=== PATIENT | female | born 1965 | race Caucasian/White ===

== ENCOUNTER → 2017-12-06 16:39 | Outpatient (CLI) | payer OTHER, SELFPAY ==
[2017-12-08 15:02] LABS: HPV Reflexed? NOT INDICATED
== END ==
PROVIDERS: Visit Provider Obstetrics & Gynecology
DX: Z12.4 Encounter for screening for malignant neoplasm of cervix (principal)
CPT/HCPCS: 88175; G0145

== ENCOUNTER → 2017-12-28 06:57 | Outpatient (CLI) | payer OTHER, SELFPAY ==
--- NOTE | 2017-12-28 07:00 | BI_ITS ---
MAMMOGRAPHY - BILATERAL SCREENING REASON FOR EXAM: Female, 52 years old. Routine annual screening examination. PERTINENT HISTORY: Mother with breast cancer. TECHNIQUE: Digital bilateral breast jailyn (3D mammographic acquisition) in the CC and MLO projections. 2-D mediolateral oblique (MLO) and craniocaudad (CC) views of both breasts were obtained. CAD: Full Field Digital Mammography with Computer Added Detection was performed. COMPARISON: Comparison is made with prior arthritic examination dated November 09, 2016. FINDINGS: Breast Composition: There are scattered areas of fibroglandular density. There are no dominant masses or suspicious calcifications. No other significant abnormalities are identified. There has been no significant change since the prior study. BI/SCREENING MAMM (CAD), BILAT IMPRESSION: Stable bilateral screening mammogram. Yearly follow-up mammogram recommended. (A) ASSESSMENT CATEGORY: BIRADS Category 1: Negative. A letter regarding these results will be sent to the patient by the facility within 30 days. Approximately 10% of breast cancers are not detected by mammography. A normal mammogram should not delay biopsy of a clinically suspicious abnormality. [id number] Electronically Signed: Murray Cleveland MD at 9:01 EDT Tel [phone], Service support ,
== END ==
PROVIDERS: Family Provider Family Medicine; PCP Family Medicine; Visit Provider Obstetrics & Gynecology
DX: Z12.31 Encounter for screening mammogram for malignant neoplasm of breast (principal)
CPT/HCPCS: 77063; 77067

== ENCOUNTER → 2018-01-26 07:57 | Outpatient (CLI) | payer OTHER, SELFPAY ==
[2018-01-26 09:00] LABS: Absolute Neutrophil Count 2.4 X10^3/uL (2.0-7.7); Basophil# 0.03 X10^3/uL; Basophil% 0.6 % (0-1); Eosinophil# 0.17 X10^3/uL; Eosinophils% 3.5 % (0-5); Hematocrit 42.4 % (37-47); Hemoglobin 13.5 g/dl (12.0-15.0); Lymphocyte % 40.8 % (19-41); Mean Corp Hgb Conc 31.8 g/gl (32-36); Mean Corpuscular Volume 84.8 fL (81-99); Mean Platelet Vol. 10.1 fl (6.2-12.0); Monocyte# 0.32 X10^3/uL; Monocyte% 6.5 % (0-10); Neutrophil # 2.38 X10^3/uL (2.7-7.7); Neutrophil % 48.6 % (47-70); Platelet Count 364 K/mm3 (150-450); RBC Distribution Width CV 17.2 % (11.6-14.6); RBC Distribution Width SD 53.6 fl (35.1-43.9); White Blood Count 4.9 K/mm3 (4.4-11.0)
[2018-01-26 09:02] LABS: POSITIVE COUNT NO; POSITIVE DIFFERENTIAL NO; POSITIVE MORPHOLOGY NO
[2018-01-26 09:32] LABS: AST(SGOT) 16 U/L (15-37); Alanine Aminotransfer ALT/SGPT 24 U/L (13-56); Albumin, Serum 3.6 g/dL (3.2-5.0); Alkaline Phosphatase 84 U/L (45-117); Anion Gap 8 (5-15); BUN 17 mg/dL (7-18); BUN/Creat Ratio 19.5 RATIO (10-20); Calcium,Total 8.7 mg/dL (8.5-10.1); Chloride 107 mmol/L (98-107); Cholesterol 228 mg/dL (200); Creatinine, Serum 0.87 mg/dL (0.55-1.02); EST Glomerular Filtration Rate 72 mL/min (>60); Est Glom Filt Rate - Afr Amer 87 mL/min (>60); Globulin 3.6 g/dL (2.2-4.2); Glucose 88 mg/dL (74-106); High Density Lipoprotein 78 mg/dL; Potassium 3.9 mmol/L (3.5-5.1); Protein, Total 7.2 g/dL (6.4-8.2); Sodium Level 142 mmol/L (136-145); Triglycerides 85 mg/dL; Very Low Density Lipoprotein 17 mg/dL (5-40)
== END ==
PROVIDERS: Family Provider Family Medicine; PCP Family Medicine; Referring Provider Family Medicine; Visit Provider Family Medicine
DX: Z00.00 Encounter for general adult medical examination without abnormal findings (principal)
CPT/HCPCS: 36415; 80053; 80061; 85025

== ENCOUNTER → 2018-12-29 06:58 | Outpatient (CLI) | payer OTHER, SELFPAY ==
[2018-08-10 16:40] VITALS: BMI 21.0
--- NOTE | 2018-12-29 07:01 | BI_ITS ---
MAMMOGRAPHY - BILATERAL SCREENING REASON FOR EXAM: Female, 53 years old. Routine annual screening examination. PERTINENT HISTORY: Mother with breast cancer. TECHNIQUE: Digital bilateral breast fady (3D mammographic acquisition) in the CC and MLO projections. 2-D mediolateral oblique (MLO) and craniocaudad (CC) views of both breasts were obtained. CAD: Full Field Digital Mammography with Computer Added Detection was performed. COMPARISON: Comparison is made with prior study dated December 28, 2017. FINDINGS: Breast Composition: There are scattered areas of fibroglandular density. There are no dominant masses or suspicious calcifications. No other significant abnormalities are identified. There has been no significant change since the prior study. BI/SCREEN MAMM (CAD) W/FADY BILAT IMPRESSION: Stable bilateral screening mammogram. Yearly follow-up mammogram recommended. (A) ASSESSMENT CATEGORY: BIRADS Category 1: Negative. A letter regarding these results will be sent to the patient by the facility within 30 days. Approximately 10% of breast cancers are not detected by mammography. A normal mammogram should not delay biopsy of a clinically suspicious abnormality. [id number] Electronically Signed: Murray Cleveland, at 8:57 EDT , Service support ,
== END ==
PROVIDERS: Family Provider Family Medicine; PCP Family Medicine; Referring Provider Obstetrics & Gynecology; Visit Provider Obstetrics & Gynecology
DX: Z12.31 Encounter for screening mammogram for malignant neoplasm of breast (principal); Z80.3 Family history of malignant neoplasm of breast
CPT/HCPCS: 77063; 77067

== ENCOUNTER → 2019-02-10 10:00 | Outpatient (CLI) | payer OTHER, SELFPAY ==
[2019-02-07 13:15] VITALS: BMI 21.0
[2019-02-10 13:15] LABS: Anion Gap 8 (5-15); BUN 14 mg/dL (7-18); BUN/Creat Ratio 17.2 RATIO (10-20); Calcium,Total 9.2 mg/dL (8.5-10.1); Chloride 103 mmol/L (98-107); Creatinine, Serum 0.82 mg/dL (0.55-1.02); EST Glomerular Filtration Rate 77 mL/min (>60); Est Glom Filt Rate - Afr Amer 94 mL/min (>60); Glucose 66 mg/dL (74-106); Potassium 3.8 mmol/L (3.5-5.1); Sodium Level 140 mmol/L (136-145); Thyroid Stim Hormone (TSH) 2.56 uIU/mL (0.358-3.74)
== END ==
PROVIDERS: Family Provider Family Medicine; PCP Family Medicine; Visit Provider Family Medicine
DX: R63.4 Abnormal weight loss (principal); K58.9 Irritable bowel syndrome, unspecified
CPT/HCPCS: 36415; 80048; 84443

== ENCOUNTER 2019-05-27 11:23 | Emergency (ER) | payer OTHER, SELFPAY ==
[2019-02-07 13:15] VITALS: BMI 21.0
[2019-05-27 11:24] VITALS: BP 135/90; PULSE 85; RESP 16; TEMP 36.6; O2SAT 96; BMI 23.4
--- NOTE | 2019-05-27 12:38 | ED.DCSUM_ITS ---
History of Present Illness Informant: Patient, Family Occurred: Today Mechanism/Context: Negative for: Assault, Burn, Injury, Fall, Puncture Wound, Slip Onset: Today Context: Gradual Onset Timing: Continuous Quality of Pain: Aching Location: left knee Current Severity: Moderate Maximum Severity: Moderate Worsened by: walking Relieved by: nothing Associated Symptoms: Negative for: Parasthesia, Weakness, Loss of Funtion Tetanus Immunization: Unknown Prior similar symptoms: Yes Recent Illness/Hospitalization: No <Sergey Frances - Last Filed: 05/27/19 13:10> <FernandoBoo - Last Filed: 05/27/19 13:26> Chief Complaint: Lower Extremity Injury Past Medical History Prior records reviewed: Yes Past Medical History: - - Arthritis, IBS Surgical History: - - micro disectomy, knee arthroscopy left Smoking Status: Never smoker <Sergey Frances - Last Filed: 05/27/19 13:10> <FernandoBoo - Last Filed: 05/27/19 13:26> - Allergies and Home Meds Allergies/Adverse Reactions: Allergies No Known Allergies Allergy (Verified 05/27/19 11:26) Primary Care Physician: Pawan Orlando DO [Primary Care Provider] - Review of Systems All systems negative except as indicated General: Denies: Chills, Fever, Malaise Eyes: Denies: Visual changes - bilaterally, Blurred Vision - bilaterally, Diplopia ENT: Denies: Rhinorrhea, Sore throat Cardiovascular: Denies: Chest pain, Palpitations, Heart racing Respiratory: Denies: Dyspnea, Cough, Sputum Gastrointestinal: Denies: Abdominal pain, Nausea, Vomiting, Diarrhea Genitourinary: Denies: Dysuria, Hematuria, Frequency Musculoskeletal: Reports: Swelling, Extremity Pain. Denies: Neck pain, Back pain Skin: Denies: Rash, Abscess, Abrasions, Wounds Neurological: Denies: Weakness, Parasthesia Psych: Denies: Depression, Anxiety <Sergey Frances - Last Filed: 05/27/19 13:10> Musculoskeletal: Reports: Swelling, Extremity Pain Hematologic: Denies: Easy bruising, Easy bleeding <FernandoBoo - Last Filed: 05/27/19 13:26> Physical Exam Vital Signs/Narrative: Vital Signs Temp Pulse Resp BP Pulse Ox 05/27/19 11:24 97.8 F 85 16 135/90 H 96 Inital Vital Signs reviewed: Yes General: Well nourished, Well developed Head: Normocephalic, Atraumatic Eyes: Perrl, EOMI ENT: No Trauma, Moist Mucous Membranes Neck: Nontender, Full ROM Cardiovascular: Regular rate, Regular rhythm Respiratory: No distress, CTA bilaterally, Chest nontender Back: Nontender Skin: No rash Neurological: Alert, Oriented x3 Psychological: Normal affect <Sergey Frances - Last Filed: 05/27/19 13:10> Vital Signs/Narrative: Vital Signs Temp Pulse Resp BP Pulse Ox 05/27/19 11:24 97.8 F 85 16 135/90 H 96 <Boo King - Last Filed: 05/27/19 13:26> Diagnostic/Tx/Re-eval - Medical Decision Making Patient's knee was aspirated by the physician Dr. King with just blood return no evidence of infection we did obtain a laboratory work-up was unremarkable. Patient has been reassured she will rest ice and elevate and use her crutches and follow-up on Wednesday as scheduled with orthopedic surgeon or return to the emergency department for worsening symptoms which were discussed. <Sergey Frances - Last Filed: 05/27/19 13:10> - Medical Decision Making An independent history physical was performed. Patient concern for more than 1 reason. She is concerned because of pain in the left knee, swelling over the left kneecap that started since yesterday and bruising. She had an MRI performed yesterday at the orthopedic center. She does not know the results. She denies history of bruising easily. She denies hematuria. She denies black or maroon-colored stool. She denies bleeding of her gums when she brushes her teeth. She is not on an anticoagulant. She denies history of trauma. She denies being on her knees to clean. Vital signs are noted. She is afebrile. Conjunctive is pink. Heart is regular. Lungs are clear to auscultation. Examination of the left lower extremity reveals swelling over the left patella consistent with a prepatellar bursitis. There is no erythema, warmth or induration. There is no lymphangitis. The patella is not ballotable. There is no effusion. There is no lacks with varus valgus stress testing. Katherine's test and modified McMu rray's tests are negative. There is no pain palpation the popliteal fossa. She does have pain the patient over the quadricep tendon. There is bruising noted left knee and anterior left leg. There are no neurovascular findings. Bruising CBC was obtained to assess platelet count and coags were obtained. These were negative. Needle aspirate of the prepatellar bursa was undertaken. Blood was aspirated. Proximally 1 cc of blood was aspirated. This is consistent with a traumatic bursitis. <Boo King - Last Filed: 05/27/19 13:26> ED Disposition <Sergey Frances - Last Filed: 05/27/19 13:10> <Boo King - Last Filed: 05/27/19 13:26> - Plan for ED Patient: Disposition: Home or Assisted Living Diagnosis: Traumatic bursitis Instructions: Bursitis Referrals: Pawan Orlando DO [Primary Care Provider] -
[2019-05-27 13:06] LABS: Absolute Lymphocyte Count 1.53 X10^3/uL (0.83-4.51); Absolute Neutrophil Count 2.7 X10^3/uL (2.0-7.7); Basophil# 0.04 X10^3/uL; Basophil% 0.8 % (0-1); Eosinophil# 0.07 X10^3/uL; Eosinophils% 1.4 % (0-5); Hemoglobin 14.7 g/dL (12.0-15.0); Lymphocyte # 1.53 X10^3/ul (4.0); Lymphocyte % 30.9 % (19-41); Mean Corp Hgb Conc 32.7 g/dL (32-36); Mean Corpuscular Hgb 30.8 pg (27.0-32.0); Mean Corpuscular Volume 94.3 fL (81-99); Monocyte# 0.59 X10^3/uL; Monocyte% 11.9 % (0-10); NRBC Flagged by Analyzer 0 % (0-5); Neutrophil # 2.71 X10^3/uL (2.7-7.7); Neutrophil % 54.8 % (47-70); Platelet Count 308 K/mm3 (150-450); RBC Distribution Width CV 12.9 % (11.6-14.6); RBC Distribution Width SD 45.1 fl (35.1-43.9); Red Blood Count 4.77 M/mm3 (4.2-5.4)
[2019-05-27 13:19] LABS: International Normalized Ratio 1.1; Partial Thromboplast Time 26.2 Seconds (24.1-36.2); Prothrombin Time (Protime)PT. 13.8 SECONDS (11.7-14.9)
[2019-05-27 13:28] VITALS: BP 119/90; PULSE 68; RESP 17; O2SAT 97
== END 2019-05-27 13:29 | disposition home or self-care (01) ==
PROVIDERS: Emergency Provider Physician Assistant Medical; PCP Family Medicine
DX: M71.562 Other bursitis, not elsewhere classified, left knee (principal); M19.90 Unspecified osteoarthritis, unspecified site; K58.9 Irritable bowel syndrome, unspecified
CPT/HCPCS: 85025; 85610; 85730; 99283; A4216

== ENCOUNTER 2019-06-02 17:36 | Emergency (ER) | payer OTHER, SELFPAY ==
[2019-06-02 17:37] VITALS: BP 147/79; PULSE 92; RESP 15; TEMP 36.6; O2SAT 96; BMI 21.3
--- NOTE | 2019-06-02 18:36 | US_ITS ---
STUDY: VENOUS DOPPLER ULTRASOUND - LEFT LOWER EXTREMITY REASON FOR EXAM: Female, 53 years old. LEFT LEG PAIN AND BRUISING FROM THE KNEE DOWN COUPLE MONTHs TECHNIQUE: Ultrasound evaluation of the deep vein system to include dickey-scale imaging and compression was performed. Dickey-scale imaging and Doppler sonographic evaluation, including duplex spectral analysis and qualitative color flow sonography, was performed. COMPARISON: None. FINDINGS: Common Femoral Vein: Normal compression, spontaneity and augmentation. Normal color Doppler. Common Femoral Vein/Greater Saphenous Junction: Normal compression, spontaneity and augmentation. Normal color Doppler. Deep Femoral Vein: Normal compression, spontaneity and augmentation. Normal color Doppler. Femoral Proximal: Normal compression, spontaneity and augmentation. Normal color Doppler. Femoral Middle: Normal compression, spontaneity and augmentation. Normal color Doppler. Femoral Distal: Normal compression, spontaneity and augmentation. Normal color Doppler. Popliteal Vein: Normal compression, spontaneity and augmentation. Normal color Doppler. Posterior Tibial Vein: Normal compression, spontaneity and augmentation. Normal color Doppler. Peroneal Vein: Normal compression, spontaneity and augmentation. Normal color Doppler. US/Venous Duplex Imag/Limited/Uni IMPRESSION: Normal venous Doppler ultrasound of the lower extremity. Electronically Signed: Madi King MD at 19:32 EST , Service support ,
--- NOTE | 2019-06-02 19:14 | ED.VISSUMM ---
- ER Visit Summary Date of Service: 06/02/19 Chief Complaint: Bruising left leg History of Present Illness: The patient is a [address] Kasia Damian. She reports that she is had some prepatellar swelling since February. She saw Dr. Damian in the office 2 weeks ago and had an x-ray. She had an MRI 1 week ago. This did not show a cause of this. She was seen in the emergency department 6 days ago and was felt that this was a bursitis. She had blood work obtained and it was drained. Patient reports that 2 days later she began getting bruising to her left leg and is now become diffuse. She reports that she has a pain that is aching 7 out of 10 with touching it or moving it. She is pain-free at rest and with elevation. She denies any numbness or weakness. Patient denies any easy bruising or bleeding. Her gums do not bleed when she flosses. Physical Examination: Vitals: Stable. Afebrile. General: Well-nourished and well-developed. Head: Normocephalic atraumatic. Neck: Supple, no lymphadenopathy. No JVD. Nontender. Cardiovascular: Regular rate and rhythm. No murmurs. Respiratory: No respiratory distress. Clear to auscultation bilaterally. Abdominal: Soft, nontender, nondistended, normal bowel sounds. No guarding, rebound, or peritoneal signs. Back: Nontender. Extremities: Diffuse ecchymosis over the anterior surface of her left leg. This is worst in the area on just medial to her knee and over the proximal leg where the knee brace has been pushing. This does extend over her medial and lateral malleoli. It is mildly tender to palpation. There is minimal erythema. She has a 2+ dorsalis pedis pulse. There is really no soft tissue swelling. She has no calf tenderness., no edema. Skin: Normal color, no rash. Neurologic: Alert and oriented ?3. Cranial nerves II through XII are intact. Normal strength and sensation. Psych: Normal affect. Test Results: Left lower extremity Doppler was negative. I reviewed the labs that she had 6 days ago. Her platelets and coags were normal. This was not repeated. Emergency Department Course and Treatment: Patient refused pain medications. She is resting comfortably. Treatment Plan: Patient reports that the knee brace does not seem to be helping. I suggested that she not wear this anymore and that she ice. She showed me pictures from the day following the drainage of her prepatellar bursa. It appears that there is a significant hematoma medially here. I suspect this is actually just traveled distally and is the source of the blood that is on her leg. She has no other contusions or petechiae. She is instructed to follow-up with Dr. Damian in 3 to 5 days for another exam. Return to the emergency department for any worsening symptoms. Disposition: To home in improved and stable condition. Impression: 1. Ecchymosis left leg. This note was generated with [employer] dictation software. It may contain incorrect words, spelling, and punctuation that were not noted in review of the chart prior to signing ED Disposition - Plan for ED Patient: Disposition: Home or Assisted Living Instructions: CONTUSION, Lower Extremity, Hematoma Referrals: Darien Holden DO [STAFF PHYSICIAN] - 3-5 Days if not improving
[2019-06-02 19:27] VITALS: BP 120/90; PULSE 69; RESP 18; O2SAT 96
== END 2019-06-02 19:27 | disposition home or self-care (01) ==
LOC: ED 17:53
PROVIDERS: Emergency Provider Emergency Medicine; PCP Family Medicine
DX: R23.3 Spontaneous ecchymoses (principal); H40.9 Unspecified glaucoma
CPT/HCPCS: 93971; 99282

== ENCOUNTER → 2019-12-14 09:14 | Outpatient (CLI) | payer OTHER, SELFPAY ==
[2019-08-08 13:03] VITALS: BMI 21.3
[2019-12-20 19:09] LABS: HPV Reflexed? NOT INDICATED
== END ==
PROVIDERS: PCP Family Medicine; Visit Provider Obstetrics & Gynecology
DX: Z12.4 Encounter for screening for malignant neoplasm of cervix (principal)
CPT/HCPCS: 88175; G0145

== ENCOUNTER → 2020-01-01 07:09 | Outpatient (CLI) | payer OTHER, SELFPAY ==
[2019-08-08 13:03] VITALS: BMI 21.3
--- NOTE | 2020-01-01 07:12 | BI_ITS ---
MAMMOGRAPHY - BILATERAL SCREENING REASON FOR EXAM: Female, 54 years old. Routine annual screening examination. PERTINENT HISTORY: Mother with breast cancer. TECHNIQUE: Digital bilateral breast fady (3D mammographic acquisition) in the CC and MLO projections. 2-D mediolateral oblique (MLO) and craniocaudad (CC) views of both breasts were obtained. CAD: Full Field Digital Mammography with Computer Added Detection was performed. COMPARISON: Comparison is made with prior examination dated 12/29/2018 and 12/28/2017. FINDINGS: Breast Composition: There are scattered areas of fibroglandular density. There are no dominant masses or suspicious calcifications. No other significant abnormalities are identified. There has been no significant change since the prior study. BI/SCREEN MAMM (CAD) W/FADY BILAT IMPRESSION: Stable bilateral screening mammogram. Yearly follow-up mammogram recommended. (A) ASSESSMENT CATEGORY: BIRADS Category 1: Negative. A letter regarding these results will be sent to the patient by the facility within 30 days. Approximately 10% of breast cancers are not detected by mammography. A normal mammogram should not delay biopsy of a clinically suspicious abnormality. [id number] Electronically Signed: Murray Cleveland, at 9:17 EDT , Service support ,
== END ==
PROVIDERS: PCP Family Medicine; Referring Provider Obstetrics & Gynecology; Visit Provider Obstetrics & Gynecology
DX: Z12.31 Encounter for screening mammogram for malignant neoplasm of breast (principal); Z80.3 Family history of malignant neoplasm of breast
CPT/HCPCS: 77063; 77067

== ENCOUNTER → 2020-01-08 10:47 | Outpatient (CLI) | payer OTHER, SELFPAY ==
[2020-01-08 10:39] VITALS: BMI 21.3
[2020-01-08 10:55] LABS: Bacteria 0 SEEN /hpf (None Seen); Mucous, Urine 0 SEEN /hpf (<or=2+); Red Blood Cells-Urine 0 SEEN /hpf (0-5); Squamous Epithelial Cells - UA 0 SEEN /hpf (5-10); White Blood Cells 0 SEEN /hpf (0-5)
[2020-01-08 12:16] LABS: Color, Urine Straw (Yellow); Glucose, Dipstick Normal (Normal); Ketone-Dipstick Negative (Negative); Leukocyte Esterase-Dipstick Negative /ul (Negative); Nitrite-Dipstick Negative (Negative); Occult Blood-Urine Negative /ul (Negative); Protein-Dipstick Negative (Negative); Urine Bilirubin Dipstick Negative (Negative); Urine Clarity Clear (Clear); Urine Urobilinogen Normal (Normal)
[2020-01-08 13:05] LABS: Anion Gap 5 (5-15); BUN 16 mg/dL (7-18); BUN/Creat Ratio 19.6 RATIO (10-20); Calcium,Total 9.4 mg/dL (8.5-10.1); Chloride 110 mmol/L (98-107); Creatinine, Serum 0.82 mg/dL (0.55-1.02); EST Glomerular Filtration Rate 77 mL/min (>60); Est Glom Filt Rate - Afr Amer 93 mL/min (>60); Glucose 102 mg/dL (74-106); Potassium 4.2 mmol/L (3.5-5.1); Sodium Level 141 mmol/L (136-145)
== END ==
PROVIDERS: PCP Family Medicine; Visit Provider Internal Medicine
DX: R39.15 Urgency of urination (principal); R31.9 Hematuria, unspecified
CPT/HCPCS: 36415; 80048; 81001

== ENCOUNTER 2020-10-29 14:45 | Emergency (ER) | payer OTHER, SELFPAY ==
[2020-08-19 12:17] VITALS: BMI 23.6
[2020-10-29 14:46] VITALS: BP 132/91; PULSE 77; RESP 16; TEMP 36.7; O2SAT 93; BMI 20.9
--- NOTE | 2020-10-29 15:29 | CT_ITS ---
STUDY: CT ABDOMEN AND PELVIS WITHOUT CONTRAST REASON FOR EXAM: Female, 55 years old. Kidney Stone, abdominal pain RADIATION DOSAGE (If Supplied By Facility): CTDIvol = ( 6.10 ) mGy, DLP = ( 284.82 ) mGycm TECHNIQUE: Transaxial images were obtained from the dome of the diaphragm to the symphysis pubis without oral contrast, and without intravenous contrast. Sagittal and coronal images were reconstructed. Individualized dose optimization techniques were used for this CT. COMPARISON: None. FINDINGS: The visualized lung bases are unremarkable. The visualized portions of the heart are within normal limits. Multiple hepatic cysts some of which are large with the largest measuring 9 cm in the posterior segment the right lobe. Normal gallbladder and extrahepatic biliary system. Normal spleen. Normal pancreas. Normal bilateral adrenal glands. 3 cm cyst in the upper pole the right kidney. Normal left kidney. Normal visualized stomach. Normal small intestine. Normal colon. The appendix is visualized and appears normal. Normal abdominal aorta. Normal inferior vena cava. Normal retroperitoneum. Normal urinary bladder. Normal abdominal wall. Normal osseous structures. CT/Abdomen/Pelvis without Cont IMPRESSION: No renal or ureteral stone. Large hepatic cysts. Electronically Signed: Felix Bland MD at 16:35 EDT Tel , Service support ,
--- NOTE | 2020-10-29 15:34 | EDS_ITS ---
HPI History of Present Illness Chief Complaint: Flank Pain Informant: patient Narrative Narrative: 55-year-old female presents with abdominal and back pain. Patient states that this morning she had some light left low back pain. She states that as the morning progressed she began to have pain wrapping around to the front of her abdomen in the lower pelvis. She notes the pain is sharp and stabbing waxing and waning and resulting in nausea but no vomiting. She denies any urinary symptoms. She denies any bowel changes. No fevers. She states that she actually had some pain in the left flank a couple days ago but it was mild it went away. She has had prior kidney stone. [facility] Medical History (Updated 10/29/20 @ 16:[address] Gabriele Price DO) Arthritis Back problem Glaucoma IBS (irritable bowel syndrome) Seasonal allergies Ureterolithiasis Home Medications ascorbic acid (vitamin C) 500 mg capsule 500 mg PO DAILY cap 01/25/18 [History Last Taken Unknown] calcium vitamin d 1 tab PO DAILY 01/25/18 [History Last Taken Unknown] latanoprost 0.005 % eye drops 1 drp OPHTHALMIC QPM 01/25/18 [History Last Taken Unknown] multivitamin 1 tab PO DAILY 01/25/18 [History Last Taken Unknown] loratadine 10 mg tablet 10 mg PO DAILY PRN 02/14/20 [History Last Taken Unknown] alprazolam 0.25 mg tablet 0.25 mg PO BID PRN #30 tab 04/10/20 [Rx Last Taken Unknown] sertraline 50 mg tablet 50 mg PO DAILY #90 tab 08/13/20 [Rx Last Taken Unknown] ondansetron 4 mg PO Q6H PRN PRN #10 tab 10/29/20 [Rx Last Taken Unknown] oxycodone-acetaminophen 1 tab PO Q6H PRN PRN 5 Days #20 tablet 10/29/20 [Rx Last Taken Unknown] Allergy/AdvReac Type Severity Reaction Status Date / Time No Known Allergies Allergy Verified 10/29/20 14:45 Family History Mother Arthritis Breast cancer Hypertension Skin cancer Father Arthritis Heart disease Brother High cholesterol Pdjwl-Vqtlfbrtz-Ujydd (WPW) syndrome Grandfather Parkinson disease Alzheimer disease Grandmother Osteoporosis Surgical History History of arthroscopy of left knee History of endometrial ablation History of microdiscectomy History of tubal ligation Social History Smoking Status: Former smoker how long ago did patient quit smokin alcohol intake: current alcohol intake frequency: holidays/special occasions only substance use type: does not use frequency: 5-6 times per week ROS ROS ED Constitutional Constitutional ED: Denies chills or weight loss Eyes Eyes: Denies change in vision or diplopia ENT ENT ED: Denies ear pain, rhinorrhea or sore throat Cardiovascular Cardiovascular: Denies chest pain, orthopnea, palpitations or racing heartbeat Respiratory/Chest Respiratory/Chest: Denies cough, dyspnea or orthopnea Gastrointestinal Gastrointestinal: Reports abdominal pain, nausea and other Details: Left flank pain ; Denies diarrhea or vomiting Genitourinary Genitourinary ED: Denies dysuria, hematuria or urinary frequency Musculoskeletal Musculoskeletal: Denies arthralgias or myalgias Integumentary Denies abscess or rash Neurologic Neurologic: Denies headache(s) or weakness Psychiatric Psychiatric: Denies anxiety, depression, suicidal ideation or suicidal thoughts Endocrine Endocrinology: Denies polydipsia, polyphagia or polyuria Allergic/Immunologic Allergic/Immunologic ED: Denies mouth swelling, tongue swelling or urticaria EXAM Physical Exam Const Vital Signs: 10/29/20 14:46 Temperature 98.1 F Temperature Source Temporal Pulse Rate 77 Respiratory Rate 16 Blood Pressure 132/91 H Blood Pressure Mean 104 Pulse Ox 93 Oxygen Delivery Method Room Air Positive well nourished and well developed General Appearance ED: well developed HEENT Reports normocephalic, head/scalp atraumatic and moist mucous membranes Eyes PERRL and EOMs intact bilaterally Neck no lymphadenopathy, supple and no JVD Resp normal respiratory effort and clear to auscultation bilaterally Cardio regular rate, regular rhythm and no murmurs GI normal to inspection, nondistended, normoactive bowel sounds and non-tender Palpation: soft Back/Spine no CVA tenderness and normal ROM Extremity normal to inspection General Extremety ED: Negative for edema General Extremity: Negative for edema Neuro oriented x3 and CN's II-XII intact bilaterally Sensorium / Orientation: alert Motor Exam: strength 5/5 throughout Psych mental status grossly normal Mood & Affect: Negative for depressed or tearful Skin no rashes or lesions noted and no wounds MDM MDM MDM Narrative Medical decision making narrative: Patient received Toradol Zofran and fluids. Normal white cell count and normal creatinine. Urinalysis shows no overt infection. CT of the abdomen pelvis was obtained. Upon my review I believe she has some hydroureter on the left. 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 Clinically however I believe she is a recurrent kidney stone. I will write for pain and nausea medication. Return if worsening or concerns Lab Data Attestation: I reviewed the patient's lab results. Labs: Laboratory Results - last 24 hr 10/29/20 10/29/20 10/29/20 15:03 15:03 15:48 WBC 8.6 RBC 4.86 Hgb 14.9 Hct 46.5 MCV 95.7 MCH 30.7 MCHC 32.0 RDW Std Deviation 47.8 H RDW Coeff of [place] 13.5 Plt Count 369 MPV 10.2 Immature Gran % (Auto) 0.300 Neut % (Auto) 70.3 H Lymph % (Auto) 21.3 [place] % (Auto) 5.7 Eos % (Auto) 1.6 Baso % (Auto) 0.8 Absolute Neuts (auto) 6.0 Absolute Lymphs (auto) 1.83 Nucleated RBC % 0 Sodium 138 Potassium 3.7 Chloride 103 Carbon Dioxide 27.0 Anion Gap 8 BUN 24 H Creatinine 0.99 Estim Creat Clear Calc 49.59 Est GFR (MDRD) Af Amer 75 Est GFR (MDRD) Non-Af 62 BUN/Creatinine Ratio 24.3 H Glucose 124 H Calcium 9.1 Urine Color Yellow Urine Clarity Sl. Cloudy Urine pH 8.0 Ur Specific [place] 1.015 Urine Protein Negative Urine Glucose (UA) Normal Urine Ketones Negative Urine Occult Blood 25 H Urine Nitrite Negative Urine Bilirubin Negative Urine Urobilinogen Normal Ur Leukocyte Esterase 25 H Urine RBC 0-5 SEEN Urine WBC 0-5 SEEN Ur Squamous Epith Cells 0-5 SEEN Amorphous Sediment 1+ Urine Bacteria 0 SEEN Urine Mucus 0 SEEN Radiography Diagnostic Testing: Radiology Impression Abdomen/Pelvis CT 10/29/20 15:29 IMPRESSION: No renal or ureteral stone. Large hepatic cysts. Electronically Signed: Felix Bland MD at 16:35 EDT Tel , Service support , Discharge Plan Triage Chief Complaint: Flank Pain ED Provider: Gabriele Price Dx/Rx/DC Orders Clinical Impression: Left flank pain Instructions: ED Kidney Stone w/ Colic Prescriptions: New oxycodone-acetaminophen [oxycodone-acetaminophen] 1 TABLET tablet 1 tab PO Q6H PRN PRN (Reason: pain) 5 Days Qty: 20 RF: 0 ondansetron [ondansetron] 4 MG tablet 4 mg PO Q6H PRN PRN (Reason: Nausea) Qty: 10 RF: 0 No Action multivitamin tablet 1 tab PO DAILY RF: 0 calcium vitamin d 1 tab PO DAILY RF: 0 ascorbic acid (vitamin C) 500 mg capsule 500 mg PO DAILY RF: 0 latanoprost 0.005 % drops 1 drp OPHTHALMIC QPM RF: 0 loratadine [Claritin] 10 mg tablet 10 mg PO DAILY PRN (Reason: Allergic Symptoms) RF: 0 alprazolam [Xanax] 0.25 mg tablet 0.25 mg PO BID PRN (Reason: anxiety) Qty: 30 RF: 1 sertraline 50 mg tablet 50 mg PO DAILY Qty: 90 RF: 1 Primary Care Provider: Pawan Orlando Referrals: Pawan Orlando, [Primary Care Provider] - 1 Week if not improving Ramos Mart MD [STAFF PHYSICIAN] - As Needed (for urology) Disposition Disposition: Home, Self Care
[2020-10-29 15:39] LABS: Absolute Lymphocyte Count 1.83 X10^3/uL (0.83-4.51); Basophil# 0.07 X10^3/uL; Basophil% 0.8 % (0-1); Eosinophil# 0.14 X10^3/uL; Eosinophils% 1.6 % (0-5); Hematocrit 46.5 % (37-47); Hemoglobin 14.9 g/dL (12.0-15.0); Lymphocyte # 1.83 X10^3/ul (0.83-4.51); Lymphocyte % 21.3 % (19-41); Mean Corpuscular Hgb 30.7 pg (27.0-32.0); Mean Corpuscular Volume 95.7 fL (81-99); Mean Platelet Vol. 10.2 fl (6.2-12.0); Monocyte# 0.49 X10^3/uL; Monocyte% 5.7 % (0-10); NRBC Flagged by Analyzer 0 % (0-5); Neutrophil # 6.04 X10^3/uL (2.7-7.7); Neutrophil % 70.3 % (47-70); Platelet Count 369 K/mm3 (150-450); RBC Distribution Width CV 13.5 % (11.6-14.6); RBC Distribution Width SD 47.8 fl (35.1-43.9); Red Blood Count 4.86 M/mm3 (4.2-5.4); White Blood Count 8.6 K/mm3 (4.4-11.0)
[2020-10-29] MEDS: 0.9% Normal Saline 1,000 ML 250 ML IV (15:42)
[2020-10-29] MEDS: Ondansetron 4 MG/2 ML Vial IV (15:42)
[2020-10-29] MEDS: Ketorolac 30 MG/ML Syringe IV (15:42)
[2020-10-29 15:50] LABS: Anion Gap 8 (5-15); BUN 24 mg/dL (7-18); BUN/Creat Ratio 24.3 RATIO (10-20); Calcium,Total 9.1 mg/dL (8.5-10.1); Chloride 103 mmol/L (98-107); Creatinine, Serum 0.99 mg/dL (0.55-1.02); EST Glomerular Filtration Rate 62 mL/min (>60); Est Glom Filt Rate - Afr Amer 75 mL/min (>60); Estimated Creatinine Clearance 49.59 ml/min; Glucose 124 mg/dL (74-106); Potassium 3.7 mmol/L (3.5-5.1); Sodium Level 138 mmol/L (136-145)
[2020-10-29 15:53] LABS: Bacteria 0 SEEN /hpf (None Seen); Mucous, Urine 0 SEEN /hpf (<or=2+)
[2020-10-29 16:01] LABS: Color, Urine Yellow (Yellow); Glucose, Dipstick Normal (Normal); Ketone-Dipstick Negative (Negative); Leukocyte Esterase-Dipstick 25 /ul (Negative); Nitrite-Dipstick Negative (Negative); Occult Blood-Urine 25 /ul (Negative); Protein-Dipstick Negative (Negative); Specific Gravity, Urine 1.015 (1.002-1.030); Urine Bilirubin Dipstick Negative (Negative); Urine Clarity Sl. Cloudy (Clear); Urine Urobilinogen Normal (Normal)
[2020-10-29 16:09] LABS: Amorphous Sediment 1+; Red Blood Cells-Urine 0-5 SEEN /hpf (0-5); Squamous Epithelial Cells - UA 0-5 SEEN /hpf (5-10); White Blood Cells 0-5 SEEN /hpf (0-5)
[2020-10-29 17:06] VITALS: BP 136/74; PULSE 78; RESP 15; O2SAT 98
== END 2020-10-29 17:08 | disposition home or self-care (01) ==
PROVIDERS: Emergency Provider Emergency Medicine; PCP Family Medicine
DX: R10.9 Unspecified abdominal pain (principal); K76.89 Other specified diseases of liver; H40.9 Unspecified glaucoma; K58.9 Irritable bowel syndrome, unspecified; M19.90 Unspecified osteoarthritis, unspecified site; Z87.442 Personal history of urinary calculi; Z87.891 Personal history of nicotine dependence
CPT/HCPCS: 74176; 80048; 81001; 85025; 99284; J7030; A4216; J2405

== ENCOUNTER → 2021-01-01 07:12 | Outpatient (CLI) | payer OTHER, SELFPAY ==
[2020-05-07 14:21] VITALS: BMI 23.6
--- NOTE | 2021-01-01 07:15 | BI_ITS ---
MAMMOGRAPHY - BILATERAL SCREENING REASON FOR EXAM: Female, 55 years old. Routine annual screening examination. PERTINENT HISTORY: Sister with breast cancer. TECHNIQUE: Digital bilateral breast fady (3D mammographic acquisition) in the CC and MLO projections. 2-D mediolateral oblique (MLO) and craniocaudad (CC) views of both breasts were obtained. CAD: Full Field Digital Mammography with Computer Added Detection was performed. COMPARISON: Comparison is made with prior study dated 01/01/2020 and 12/29/2018. FINDINGS: Breast Composition: There are scattered areas of fibroglandular density. There are no dominant masses or suspicious calcifications. No other significant abnormalities are identified. There has been no significant change since the prior study. BI/SCRN MAMM (CAD)W/FADY BILAT IMPRESSION: Stable bilateral screening mammogram. Yearly follow-up mammogram recommended. (A) ASSESSMENT CATEGORY: BIRADS Category 1: Negative. A letter regarding these results will be sent to the patient by the facility within 30 days. Approximately 10% of breast cancers are not detected by mammography. A normal mammogram should not delay biopsy of a clinically suspicious abnormality. [id number] Electronically Signed: Murray Cleveland MD at 8:40 EDT , Service support ,
== END ==
PROVIDERS: PCP Family Medicine; Referring Provider Obstetrics & Gynecology; Visit Provider Obstetrics & Gynecology
DX: Z12.31 Encounter for screening mammogram for malignant neoplasm of breast (principal)
CPT/HCPCS: 77063; 77067

== ENCOUNTER → 2021-02-07 08:29 | Outpatient (CLI) | payer OTHER, SELFPAY ==
--- NOTE | 2021-02-07 08:44 | RAD_ITS ---
STUDY: X-RAY - CERVICAL SPINE REASON FOR EXAM: Female, 55 years old. NECK PAIN WITH PAIN, NUMBNESS AND TINGLING RADIATING INTO RIGHT ARM WITH 1ST AND 2ND DIGITS AFFECTED ALSO TECHNIQUE: 5 view(s) of the cervical spine were obtained. COMPARISON: None FINDINGS: Normal anterior atlantoaxial articulation. Normal odontoid process. Normal cervical lordosis. There is multi-level endplate spondylosis. Slight degenerative anterolisthesis of C3-C4 (1-2 mm). There is multi-level degenerative disc disease with multilevel disc space narrowing. Disc space narrowing is most pronounced at C6-C7. Bilateral foraminal narrowing due to facet and uncovertebral hypertrophy at multiple levels, right more than left, particularly bilateral C5-C6 and C6-C7. The soft tissue structures are unremarkable. RAD/Cerv Spine 4 or 5 Views IMPRESSION: Multilevel degenerative disc disease with foraminal narrowing. Electronically Signed: Jose Ferrera MD ([place]) at 16:30 EDT , Service support ,
== END ==
PROVIDERS: PCP Family Medicine; Referring Provider Anesthesiology Pain Medicine; Visit Provider Anesthesiology Pain Medicine
DX: M54.12 Radiculopathy, cervical region (principal); M54.2 Cervicalgia
CPT/HCPCS: 72050

== ENCOUNTER → 2021-02-19 09:27 | Outpatient (CLI) | payer OTHER, SELFPAY ==
[2021-02-19 13:08] LABS: Hemoglobin A1c 5.4 % (3.8-5.6)
== END ==
PROVIDERS: PCP Family Medicine; Referring Provider Family Medicine; Visit Provider Family Medicine
DX: R73.9 Hyperglycemia, unspecified (principal)
CPT/HCPCS: 36415; 83036

== ENCOUNTER 2021-03-26 15:30 | Outpatient (RCR) | payer OTHER, SELFPAY ==
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
--- NOTE | 2021-03-26 15:49 | HP.PTDCSUM ---
It has been my pleasure to treat KALEB SNIDER referred by Dr. Pawan Orlando DO, with the diagnosis of Cervical Spine for a total of 9 visit(s). Discharge Date: Please see the following information for a summary of their discharge status. Subjective: Patient reports that she is some better. She is still having radiating s/s when she tilts her head to the right and lifts her arm. Does not feel like its getting worse but its not getting a lot better. She plans to return to her MD and go to pain mgmt. She feels much better when she is not working. % Improvement: 60 Objective/Function: Posture: FH, RS- can correct with verbal and tactile cues band maintain Gait: no deviation noted- good arm swing and trunk rotation. Sensation: WNL. Palpation: tender along upper trap from the tip of the acromion to the occiput, scapula and down the bicep/tricep. ROM: Cervical: all limited by 25% with pain, UE: WFL in all planes no pain. Strength: Cervical: 4-/5 isometric with pain, Shoulder: 4+/5 throughout no pain, Scap: fair minus, Elbow/Wrist:5/5, Floorperson: Left: 40 Right: 35. C/S Radiculapathy - Left Upper limb tension test: Negative. C/S Radiculapathy - Right Upper limb tension test: Positive. C/S Radiculapathy - Left Spurlings: Negative. C/S Radiculapathy - Right Spurlings: Positive. C/S Radiculapathy - Left Cervical distraction: Negative. C/S Radiculapathy - Right Cervical distraction: Positive Goal 1:: Patient will be I with HEP and progression Goal Progress: Goal Met Goal 2:: Patient will maintain proper posture t/o tx session to demo increased scap s/s Goal Progress: Progressing Goal 3:: Patient will report no radicular s/s for 1 week Goal Progress: Not Progressing Plan: Discharge to I home exercise program-and return to MD for further evaluation. If there are questions or concerns regarding this patient's physical therapy, please feel free to call me at [phone]. Thank you for the referral of this patient. Sincerely, Adriana Larkin, LUPET Balance/Gait/Functional tests - Balance/Special Test Scores Oswestry Neck Score: 15
--- NOTE | 2021-04-30 15:14 | HP.PTDCSUM ---
It has been my pleasure to treat KALEB SNIDER referred by Dr. Pawan Orlando DO, with the diagnosis of Cervical Spine for a total of 9 visit(s). Discharge Date: Please see the following information for a summary of their discharge status. Subjective: Patient reports that she is some better. She is still having radiating s/s when she tilts her head to the right and lifts her arm. Does not feel like its getting worse but its not getting a lot better. She plans to return to her MD and go to pain mgmt. She feels much better when she is not working. % Improvement: 60 Objective/Function: Posture: FH, RS- can correct with verbal and tactile cues band maintain Gait: no deviation noted- good arm swing and trunk rotation. Sensation: WNL. Palpation: tender along upper trap from the tip of the acromion to the occiput, scapula and down the bicep/tricep. ROM: Cervical: all limited by 25% with pain, UE: WFL in all planes no pain. Strength: Cervical: 4-/5 isometric with pain, Shoulder: 4+/5 throughout no pain, Scap: fair minus, Elbow/Wrist:5/5, Academic Advising Director: Left: 40 Right: 35. C/S Radiculapathy - Left Upper limb tension test: Negative. C/S Radiculapathy - Right Upper limb tension test: Positive. C/S Radiculapathy - Left Spurlings: Negative. C/S Radiculapathy - Right Spurlings: Positive. C/S Radiculapathy - Left Cervical distraction: Negative. C/S Radiculapathy - Right Cervical distraction: Positive Goal 1:: Patient will be I with HEP and progression Goal Progress: Goal Met Goal 2:: Patient will maintain proper posture t/o tx session to demo increased scap s/s Goal Progress: Progressing Goal 3:: Patient will report no radicular s/s for 1 week Goal Progress: Not Progressing Plan: Discharge to I home exercise program-and return to MD for further evaluation. If there are questions or concerns regarding this patient's physical therapy, please feel free to call me at [phone]. Thank you for the referral of this patient. Sincerely, Adriana Larkin, LUPET Balance/Gait/Functional tests - Balance/Special Test Scores Oswestry Neck Score: 15
== END 2021-03-26 19:00 | disposition home or self-care (01) ==
LOC: PT 15:30
PROVIDERS: PCP Family Medicine; Referring Provider Family Medicine; Visit Provider Family Medicine
DX: M54.12 Radiculopathy, cervical region (principal)
CPT/HCPCS: 97012; 97035; 97110; 97140; 97162; 97164

== ENCOUNTER → 2021-12-24 | Outpatient (CLI) | payer OTHER, SELFPAY ==
[2021-12-30 15:50] LABS: HPV APTIMA, High Risk Negative (Negative)
== END | disposition home or self-care (01) ==
LOC: LABSPEC 16:18
PROVIDERS: PCP Family Medicine; Visit Provider Obstetrics & Gynecology
DX: Z12.4 Encounter for screening for malignant neoplasm of cervix (principal)
CPT/HCPCS: 87624; 88175; G0145

== ENCOUNTER → 2022-01-01 | Outpatient (CLI) | payer OTHER, SELFPAY ==
--- NOTE | 2022-01-01 07:17 | BI_ITS ---
MAMMOGRAPHY - BILATERAL SCREENING 3-D TOMOSYNTHESIS REASON FOR EXAM: Female, 56 years old. SCREENING PERTINENT HISTORY: No significant family history. TECHNIQUE: 2-D mammograms and 3-D Tomosynthesis of the breast (s) were performed. CAD was performed. COMPARISON: 01/01/2021 FINDINGS: The breast composition is composed of scattered fibroglandular density. Scattered benign calcifications are seen. No dense spiculated masses or suspicious microcalcifications are identified. No architectural distortion is identified. There is no skin thickening or retraction. There has been no significant change since the prior study. BI/SCRN MAMM (CAD)W/FADY BILAT IMPRESSION: No mammographic signs of malignancy. Routine yearly mammograms recommended. ASSESSMENT CATEGORY: BIRADS Category 1: Negative. A letter regarding these results will be sent to the patient by the facility within 30 days. FOLLOW UP RECOMMENDATION: Yearly follow up mammogram recommended. (A) Approximately 10% of breast cancers are not detected by mammography. A normal mammogram should not delay biopsy of a clinically suspicious abnormality. Electronically Signed: Felix Bland MD at 8:25 EDT ,
== END | disposition home or self-care (01) ==
LOC: OPBI 07:14
PROVIDERS: PCP Family Medicine; Visit Provider Obstetrics & Gynecology
DX: Z12.31 Encounter for screening mammogram for malignant neoplasm of breast (principal)
CPT/HCPCS: 77063; 77067

== ENCOUNTER → 2022-01-13 | Outpatient (CLI) | payer OTHER, SELFPAY ==
--- NOTE | 2022-01-13 16:51 | RAD_ITS ---
STUDY: X-RAY - LUMBOSACRAL SPINE REASON FOR EXAM: Female, 56 years old. PAIN TECHNIQUE: AP, bilateral oblique, and lateral neutral, extension and flexion views of the lumbosacral spine were obtained. COMPARISON: CT abdomen and pelvis 10/29/2020. FINDINGS: No visible fracture. Mild left scoliosis centered at L2. Mild, 2 mm, retrolisthesis of L4 on L5 with flexion which reduces to normal alignment in neutral position and extension. Marked facet degeneration L4-5 and L5-S1. Only mild disc degeneration. No apparent fracture or aggressive osseous lesions. Soft tissues unremarkable. RAD/L/S Spine Comp/w Bending Views IMPRESSION: Mild mechanical instability with 2 mm anterolisthesis of L4 on L5 with flexion. Marked facet degeneration L4-5 and L5-S1. Electronically Signed: Osmin Alfonso MD at 6:09 EDT Reading Location ID and State: [facility] / [place] Tel , Service support ,
== END | disposition home or self-care (01) ==
LOC: MTRAD 16:48
PROVIDERS: PCP Family Medicine; Referring Provider Anesthesiology Pain Medicine; Visit Provider Anesthesiology Pain Medicine
DX: M51.37 Other intervertebral disc degeneration, lumbosacral region (principal); M54.17 Radiculopathy, lumbosacral region
CPT/HCPCS: 72114

== ENCOUNTER → 2022-02-24 | Outpatient (CLI) | payer OTHER, SELFPAY ==
--- NOTE | 2022-02-24 15:13 | RAD_ITS ---
STUDY: X-RAY - SACRUM/COCCYX REASON FOR EXAM: Female, 56 years old. pain TECHNIQUE: 3 view(s) of the sacrum and coccyx were obtained. COMPARISON: None. FINDINGS: Bony structures appear osteopenic for age. Normal bilateral sacroiliac joints. Normal visualized sacral ala and fused sacral bodies. Normal sacrococcygeal junction with a normal angulation. Normal coccygeal segments. The presacral soft tissue structures are unremarkable. RAD/Sacrum-Coccyx min 2 Views IMPRESSION: Mild diffuse osteopenia for stated age. No acute fracture. No lytic destructive changes. If pain persists bone scan or MRI recommended for further evaluation Electronically Signed: Mdai King MD at 18:35 EST ,
[2022-02-24 16:56] LABS: Absolute Lymphocyte Count 2.05 X10^3/uL (0.83-4.51); Absolute Neutrophil Count 2.5 X10^3/uL (2.0-7.7); Basophil# 0.06 X10^3/uL; Basophil% 1.1 % (0-1); Eosinophil# 0.13 X10^3/uL; Eosinophils% 2.5 % (0-5); Hematocrit 43.1 % (37-47); Hemoglobin 14.3 g/dL (12.0-15.0); Lymphocyte # 2.05 X10^3/ul (0.83-4.51); Lymphocyte % 39.3 % (19-41); Mean Corp Hgb Conc 33.2 g/dL (32-36); Mean Corpuscular Hgb 30.8 pg (27.0-32.0); Mean Corpuscular Volume 92.9 fL (81-99); Monocyte# 0.45 X10^3/uL; Monocyte% 8.6 % (0-10); NRBC Flagged by Analyzer 0 % (0-5); Neutrophil # 2.52 X10^3/uL (2.7-7.7); Neutrophil % 48.3 % (47-70); Platelet Count 383 K/mm3 (150-450); RBC Distribution Width CV 14.4 % (11.6-14.6); RBC Distribution Width SD 48.5 fl (35.1-43.9); Red Blood Count 4.64 M/mm3 (4.2-5.4); White Blood Count 5.2 K/mm3 (4.4-11.0)
[2022-02-24 17:08] LABS: ALB/GLOB Ratio 1.1 RATIO (0.9-2.4); AST(SGOT) 24 U/L (15-37); Alanine Aminotransfer ALT/SGPT 32 U/L (13-56); Albumin, Serum 3.7 g/dL (3.2-5.0); Alkaline Phosphatase 124 U/L (45-117); Anion Gap 6 (5-15); BUN 16 mg/dL (7-18); BUN/Creat Ratio 20.3 RATIO (10-20); Calcium,Total 9.1 mg/dL (8.5-10.1); Chloride 106 mmol/L (98-107); Creatinine, Serum 0.79 mg/dL (0.55-1.02); EST Glomerular Filtration Rate 79 mL/min (>60); Est Glom Filt Rate - Afr Amer 96 mL/min (>60); Globulin 3.4 g/dL (2.2-4.2); Glucose 85 mg/dL (74-106); Protein, Total 7.1 g/dL (6.4-8.2); Sodium Level 140 mmol/L (136-145)
== END | disposition home or self-care (01) ==
PROVIDERS: PCP Family Medicine; Referring Provider Family Medicine; Visit Provider Family Medicine
DX: M53.3 Sacrococcygeal disorders, not elsewhere classified (principal); K58.9 Irritable bowel syndrome, unspecified
CPT/HCPCS: 36415; 72220; 80053; 85025

== ENCOUNTER → 2023-01-04 | Outpatient (CLI) | payer OTHER, SELFPAY ==
--- NOTE | 2023-01-04 07:12 | BI_ITS ---
MAMMOGRAPHY - BILATERAL SCREENING REASON FOR EXAM: Female, 57 years old. Routine annual screening examination. PERTINENT HISTORY: Mother with breast cancer. TECHNIQUE: Digital bilateral breast fady (3D mammographic acquisition) in the CC and MLO projections. 2-D mediolateral oblique (MLO) and craniocaudad (CC) views of both breasts were obtained. CAD: Full Field Digital Mammography with Computer Added Detection was performed. COMPARISON: Comparison is made with prior study dated January 01, 2022 and January 01, 2021. FINDINGS: Breast Composition: There are scattered areas of fibroglandular density. There are no dominant masses or suspicious calcifications. Stable small benign-appearing bilateral axillary lymph nodes. No other significant abnormalities are identified. There has been no significant change since the prior study. BI/SCRN MAMM (CAD)W/FADY BILAT IMPRESSION: Stable bilateral screening mammogram. Yearly follow-up mammogram recommended. (A) ASSESSMENT CATEGORY: BIRADS Category 2: Benign. A letter regarding these results will be sent to the patient by the facility within 30 days. Approximately 10% of breast cancers are not detected by mammography. A normal mammogram should not delay biopsy of a clinically suspicious abnormality. [id number] Electronically Signed: Murray Cleveland MD at 8:50 EDT ,
== END | disposition home or self-care (01) ==
LOC: OPBI 07:10
PROVIDERS: PCP Family Medicine; Referring Provider Family Medicine; Visit Provider Family Medicine
DX: Z12.31 Encounter for screening mammogram for malignant neoplasm of breast (principal); Z80.3 Family history of malignant neoplasm of breast
CPT/HCPCS: 77063; 77067

== ENCOUNTER → 2023-01-27 | Outpatient (CLI) | payer OTHER, SELFPAY ==
[2023-01-27 10:20] LABS: Mucous, Urine 0 SEEN /hpf (<or=2+); Squamous Epithelial Cells - UA 0 SEEN /hpf (5-10)
[2023-01-27 10:34] LABS: Color, Urine Yellow (Yellow); Glucose, Dipstick Normal (Normal); Ketone-Dipstick Negative (Negative); Leukocyte Esterase-Dipstick 500 /ul (Negative); Nitrite-Dipstick Negative (Negative); Occult Blood-Urine 250 /ul (Negative); Protein-Dipstick 15 mg/dl (Negative); Specific Gravity, Urine 1.015 (1.002-1.030); Urine Bilirubin Dipstick Negative (Negative); Urine Clarity Clear (Clear); Urine Urobilinogen Normal (Normal)
[2023-01-27 11:08] LABS: White Blood Cells >100 SEEN /hpf (0-5)
[2023-01-27 11:09] LABS: Bacteria 2+ /hpf (None Seen); Red Blood Cells-Urine 25-50 SEEN /hpf (0-5)
== END | disposition home or self-care (01) ==
LOC: LABSPEC 10:05
PROVIDERS: PCP Family Medicine; Referring Provider Physician Assistant; Visit Provider Physician Assistant
DX: R35.0 Frequency of micturition (principal)
CPT/HCPCS: 81001; 87086; 87088

== ENCOUNTER → 2023-02-24 | Outpatient (CLI) | payer OTHER, SELFPAY ==
[2023-02-24 15:20] LABS: Absolute Neutrophil Count 4.1 X10^3/uL (2.0-7.7); Basophil# 0.08 X10^3/uL; Basophil% 1.1 % (0-1); Eosinophil# 0.19 X10^3/uL; Eosinophils% 2.7 % (0-5); Hematocrit 41.5 % (37-47); Hemoglobin 13.4 g/dL (12.0-15.0); Lymphocyte % 32.2 % (19-41); Mean Corp Hgb Conc 32.3 g/dL (32-36); Mean Corpuscular Hgb 29.3 pg (27.0-32.0); Mean Corpuscular Volume 90.6 fL (81-99); Mean Platelet Vol. 9.8 fl (6.2-12.0); Monocyte# 0.48 X10^3/uL; Monocyte% 6.7 % (0-10); NRBC Flagged by Analyzer 0 % (0-5); Neutrophil # 4.07 X10^3/uL (2.7-7.7); Neutrophil % 56.9 % (47-70); Platelet Count 421 K/mm3 (150-450); RBC Distribution Width CV 13.2 % (11.6-14.6); RBC Distribution Width SD 42.9 fl (35.1-43.9); Red Blood Count 4.58 M/mm3 (4.2-5.4); White Blood Count 7.2 K/mm3 (4.4-11.0)
[2023-02-24 16:08] LABS: ALB/GLOB Ratio 1.1 RATIO (0.9-2.4); AST(SGOT) 21 U/L (15-37); Alanine Aminotransfer ALT/SGPT 24 U/L (13-56); Albumin, Serum 3.8 g/dL (3.2-5.0); Alkaline Phosphatase 123 U/L (45-117); Anion Gap 7 (5-15); BUN 19 mg/dL (7-18); BUN/Creat Ratio 22.9 RATIO (10-20); Calcium,Total 9.1 mg/dL (8.5-10.1); Chloride 107 mmol/L (98-107); Cholesterol 246 mg/dL (200); Creatinine, Serum 0.83 mg/dL (0.55-1.02); EST Glomerular Filtration Rate 75 mL/min (>60); Est Glom Filt Rate - Afr Amer 91 mL/min (>60); Globulin 3.5 g/dL (2.2-4.2); Glucose 89 mg/dL (74-106); High Density Lipoprotein 101 mg/dL; Potassium 3.8 mmol/L (3.5-5.1); Protein, Total 7.3 g/dL (6.4-8.2); Sodium Level 141 mmol/L (136-145); Triglycerides 96 mg/dL; Very Low Density Lipoprotein 19 mg/dL (5-40)
== END | disposition home or self-care (01) ==
LOC: BIMLAB 14:23
PROVIDERS: PCP Family Medicine; Referring Provider Family Medicine; Visit Provider Family Medicine
DX: Z00.00 Encounter for general adult medical examination without abnormal findings (principal)
CPT/HCPCS: 36415; 80053; 80061; 85025

== ENCOUNTER → 2024-01-06 | Outpatient (CLI) | payer OTHER, SELFPAY ==
--- NOTE | 2024-01-06 07:05 | BI_ITS ---
MAMMOGRAPHY - BILATERAL SCREENING REASON FOR EXAM: Female, 58 years old. Routine annual screening examination. PERTINENT HISTORY: Mother with breast cancer. TECHNIQUE: Digital bilateral breast fady (3D mammographic acquisition) in the CC and MLO projections. 2-D mediolateral oblique (MLO) and craniocaudad (CC) views of both breasts were obtained. CAD: Full Field Digital Mammography with Computer Added Detection was performed. COMPARISON: Comparison is made with prior study January 04, 2023 and January 01, 2022. FINDINGS: Breast Composition: There are scattered areas of fibroglandular density. There are no dominant masses or suspicious calcifications. No other significant abnormalities are identified. There has been no significant change since the prior study. BI/SCRN MAMM (CAD)W/FADY BILAT IMPRESSION: Stable bilateral screening mammogram. Yearly follow-up mammogram recommended. (A) ASSESSMENT CATEGORY: BIRADS Category 1: Negative. A letter regarding these results will be sent to the patient by the facility within 30 days. Approximately 10% of breast cancers are not detected by mammography. A normal mammogram should not delay biopsy of a clinically suspicious abnormality. [id number] Electronically Signed: Murray Cleveland MD at 9:11 EDT ,
== END | disposition home or self-care (01) ==
LOC: OPBI 07:05
PROVIDERS: PCP Family Medicine; Referring Provider Family Medicine; Visit Provider Family Medicine
DX: Z12.31 Encounter for screening mammogram for malignant neoplasm of breast (principal); Z80.3 Family history of malignant neoplasm of breast
CPT/HCPCS: 77063; 77067

== ENCOUNTER 2024-01-12 07:56 | Day surgery (SDC) | payer OTHER, SELFPAY ==
[2024-01-12] VITALS (7 sets, daily range): BP systolic 85–133; BP diastolic 66–91; PULSE 63–97; RESP 16; TEMP 36.2–36.7; O2SAT 96–100; BMI 24.5
--- NOTE | 2024-01-12 08:13 | PCM.PRE.AN2 ---
ASA Classification* ASA Classification ASA Classification: 2 Assessment & Plan Anesthesia* Anesthesia Assessment Anesthesia Assessment: Discussed sedation and/or anesthesia options, risks, benefits, and alternatives with patient/parents/legal guardian/POA. Questions invited. The patient/parents/legal guardian/POA seems to understand and agrees to proceed with anesthesia plan. Reviewed the physical assessment, medical history, allergy history and patient home medications list prior to surgery/procedure/anesthetic and documented any changes. Performed airway and anesthesia risk assessments. Anesthesia Type Anesthesia Type: MAC (see written pre anesthesia record for full assessment) Anesthesia Focused Assessment* Airway Assessment Mouth opens: >3 cm Mallampati Score: II Focused Labs Anesthesia Preop lab: CBC WBC 7.2 K/mm3 (4.4-11.0) 02/24/23 14: RBC 4.58 M/mm3 (4.2-5.4) 02/24/23 14:23 Hgb 13.4 g/dL (12.0-15.0) 02/24/23 14:23 Hct 41.5 % (37-47) 02/24/23 14:23 Plt Count 421 K/mm3 (150-450) 02/24/23 14:23 CHEMISTRY Potassium 3.8 mmol/L (3.5-5.1) 02/24/23 14:23 Sodium 141 mmol/L (136-145) 02/24/23 14:23 BUN 19 mg/dL (7-18) H 02/24/23 14:23 Creatinine 0.83 mg/dL (0.55-1.02) 02/24/23 14:23 Glucose 89 mg/dL (74-106) 02/24/23 14:23 TSH 2.56 uIU/mL (0.358-3.74) 02/10/19 10:01 COAG PT 13.8 SECONDS (11.7-14.9) 05/27/19 12:00 Pre-Assessment Diagnosis/Proposed Procedure Planned Operative Procedure(s): COLONOSCOPY-OA Anesthesia History 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 When Was Last Pacemaker Check QUESTION #4 FULL TEXT: You/Your Family Experience fever (hyperthermia) with Anesthesia Last Oral Intake Last Oral intake: Last Oral Intake NPO since Meds taken in AM with sips of water? Meds patient instructed to take am of surgery PONV PONV - heading up machine operator: PONV - heading up machine operator Female Yes 01/10/24 10:12 HX of Motion Sickness No 01/10/24 10:12 HX of N/V After Surgery No 01/10/24 10:12 Non-Smoker Yes 01/10/24 10:12 Duration of Surgery greater No 01/10/24 10:12 than 60 minutes Number of Risk Factors 2 01/10/24 10:12 PONV Score Moderate Risk 01/10/24 10:12 Height & Weight Height & Weight: Anesthesia: Height & Weight Height 5 ft 1 in 01/05/24 14:37 Respiratory Assessment Respiratory Assessment - heading up machine operator: Respiratory Tract Infection Hx - heading up machine operator Hx Respiratory Tract Infection No 01/10/24 10:12 STOP Sleep Apnea STOP Sleep Apnea - heading up machine operator: STOP Sleep Apnea - heading up machine operator Hx Hypertension No 01/10/24 10:12 Hx Sleep Apnea No 01/10/24 10:12 CPAP BIPAP Do you snore loudly (louder No 01/10/24 10:12 than talking or can be heard Do you often feel tired/ No 01/10/24 10:12 fatigued/ sleepy during daytime? Has anyone observed you stop No 01/10/24 10:12 breathing during sleep? STOP Results Negative 01/10/24 10:12 QUESTION #5 FULL TEXT : Do you snore loudly (louder than talking or can be heard through closed doors)? 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 Specify any problems Hx of Preganancy in last 3 No 01/10/24 10:12 Months Nurse Filling Out Transfusion VCHRISTIN 01/10/24 10:12 & Questions: Date: 01/10/24 01/10/24 10:12 Time: 10:13 01/10/24 10:12 Patient unable to answer at this time (ie. confused, unrespo /Reproduction History /Reproductive History - heading up machine operator: /Reproductive Hx- heading up machine operator Hx Now No 01/10/24 10:12 Gestational Age (in weeks): EDC: Hx Hx Para Hx Section SAB No 01/10/24 10:12 Active Medications Active Medications: Current Medications Generic Name Dose Route Start Last Admin Trade Name Freq PRN Reason Stop Dose Admin Lactated Ringer's 1,000 mls @ 15 mls/hr 01/12/24 08:15 IV .Q48H ESEQUIEL PFSH Medical History Wears glasses Post-menopausal Anxiety Depression Kidney stones Back pain Former smoker History of echocardiogram Ureterolithiasis IBS (irritable bowel syndrome) Glaucoma Back problem Arthritis Seasonal allergies Home Medications ?Medication ?Instructions ?Recorded ?Last Taken ?Type ascorbic acid (vitamin C) 500 mg 500 mg PO DAILY 01/25/18 Unknown History capsule calcium vitamin d 1 tab PO DAILY 01/25/18 Unknown History latanoprost 0.005 % eye drops 1 drp ophthalmic (eye) QPM 01/25/18 Unknown History multivitamin 1 tab PO DAILY 01/25/18 Unknown History alprazolam 0.25 mg tablet (Xanax) 0.25 mg PO BID PRN anxiety #30 tabs 11/05/22 Unknown Rx sertraline 50 mg tablet 50 mg PO DAILY #90 tabs 11/09/23 Unknown Rx Allergy/AdvReac Type Severity Reaction Status Date / Time No Known Allergies Allergy Verified 01/12/24 08:04 Family History Mother Arthritis Breast cancer Hypertension Skin cancer Father Arthritis Heart disease Colon polyps Brother High cholesterol Xphle-[id number]-[id number] (WPW) syndrome Grandfather Parkinson disease Alzheimer disease Grandmother Osteoporosis Surgical History Hx of colonoscopy History of microdiscectomy History of endometrial ablation History of arthroscopy of left knee History of tubal ligation Social History household members: other details: current occupational status: employed current occupation: [employer] Smoking Status: Former smoker how long ago did patient quit smokin alcohol intake: current alcohol intake frequency: holidays/special occasions only substance use type: does not use frequency: 5-6 times per week Review of Systems (Anesthesia) ROS Narrative System reviewed and no additional complaints, except as documented.
[2024-01-12] MEDS: Lactated Ringers 1,000 ML 15 ML IV (08:19)
--- NOTE | 2024-01-12 09:20 | PCM.HP.STD ---
[facility] - General General Date of Admission: 02/16/24 Date of Service: 01/12/24 Chief Complaint: Screening colonoscopy HPI Narrative KALEB SNIDER, is a 58 F who presents today for screening colonoscopy. She had a colonoscopy approximately 10 years ago and was normal. She denies any abdominal pain. She denies any chest pain or shortness of breath. Overall she is in very good health. [facility] Medical History Wears glasses Post-menopausal Anxiety Depression Kidney stones Back pain Former smoker History of echocardiogram Ureterolithiasis IBS (irritable bowel syndrome) Glaucoma Back problem Arthritis Seasonal allergies Home Medications ?Medication ?Instructions ?Recorded ?Last Taken ?Type ascorbic acid (vitamin C) 500 mg 500 mg PO DAILY 01/25/18 Unknown History capsule calcium vitamin d 1 tab PO DAILY 01/25/18 Unknown History latanoprost 0.005 % eye drops 1 drp ophthalmic (eye) QPM 01/25/18 Unknown History multivitamin 1 tab PO DAILY 01/25/18 Unknown History alprazolam 0.25 mg tablet (Xanax) 0.25 mg PO BID PRN anxiety #30 tabs 11/05/22 Unknown Rx sertraline 50 mg tablet 50 mg PO DAILY #90 tabs 11/09/23 Unknown Rx Allergy/AdvReac Type Severity Reaction Status Date / Time No Known Allergies Allergy Verified 01/12/24 08:04 Family History Mother Arthritis Breast cancer Hypertension Skin cancer Father Arthritis Heart disease Colon polyps Brother High cholesterol Ljmmk-Eiqzurqqr-Eiwdk (WPW) syndrome Grandfather Parkinson disease Alzheimer disease Grandmother Osteoporosis Surgical History Hx of colonoscopy History of microdiscectomy History of endometrial ablation History of arthroscopy of left knee History of tubal ligation Social History household members: other details: current occupational status: employed current occupation: [employer] Smoking Status: Former smoker how long ago did patient quit smokin alcohol intake: current alcohol intake frequency: holidays/special occasions only substance use type: does not use frequency: 5-6 times per week ROS Review of Systems ROS Unobtainable: other Constitutional Constitutional: Denies fatigue, fever(s), poor appetite, weight gain or weight loss ENT HEENT: Denies mouth lesions Cardiovascular Cardiovascular: Denies abdominal bloating, abdominal edema or abdominal pain Respiratory/Chest Respiratory/Chest: Denies change in mental status, change in phlegm color, chest congestion or chest tightness Gastrointestinal Gastrointestinal: Denies belching, bloating, change in bowel habits, change in stool character, chewing difficulty, coffee ground emesis, constipation, cramping, diarrhea, dyspepsia, dysphagia, early satiety, excessive flatus, fecal incontinence, heartburn, hematemesis, hematochezia, hemorrhoids, loose stools, melena, nausea, odynophagia, rectal bleeding, tenesmus, vomiting or weight changes Genitourinary Genitourinary: Denies abdominal discomfort, burning urination or itching Musculoskeletal Musculoskeletal: Reports as per HPI; Denies muscle weakness or myalgias Integumentary Integumentary: Denies jaundice Neurologic Neurologic: Denies lack of coordination or weakness Psychiatric Psychiatric: Denies confusion, depression, memory loss, mood swings, paranoia or suicidal ideation Endocrine Endocrinology: Denies systems reviewed and no addt'l complaints, except as documented Hematologic/Lymphatic Hematologic/Lymphatic: Denies anemia, easy bleeding, easy bruising or lymphadenopathy Allergic/Immunologic Allergic/Immunologic: Denies systems reviewed and no addt'l complaints, except as documented Vital Signs Vital Signs Vital Signs: 01/12/24 08:19 01/12/24 08:19 Temperature 97.2 F L Temperature Source Temporal Pulse Rate 97 Respiratory Rate 16 Respiratory Pattern Normal Blood Pressure 133/91 H Blood Pressure Mean 105 Blood Pressure Source Monitor Blood Pressure Position Semi-Fowlers Blood Pressure Location Left Arm Pulse Ox 100 Oxygen Delivery Method Room Air Weight Weight: 134 lb 0.657 oz Body Mass Index (BMI) 24.5 Physical Exam Const alert General Appearance: cooperative Orientation / Consciousness: oriented to person HEENT hearing grossly normal bilaterally Head and Scalp: normal to inspection Face and Sinus: face symmetric Nose: external nose normal Mouth: oral and palatal mucosa normal Eyes conjunctivae normal General Eye: normal appearance of both eyes Neck full ROM General: normal visual inspection Lymph Lymphatic: no lymphadenopathy noted Chest inspection of chest normal and palpation of chest normal Chest: symmetrical chest wall rise Resp normal respiratory effort Effort and Inspection: able to speak in complete sentences Cardio regular rate GI non-distended Percussion: normal to percussion Rectal Exam: deferred Neuro Speech: speech normal Gait (Neuro): normal gait Assessment & Plan Assessment/Plan (1) Encounter for screening for malignant neoplasm of colon: PLAN: She was explained alternatives, risk, benefits including not withstanding bleeding, infection, sepsis, perforation, need for emergent urgent . She will have an ASA of 3.
--- NOTE | 2024-01-12 09:55 | PCM.POST.ANE ---
Anesthesia: Postop Eval I Current Vital Signs Temperature: 97.3 F Pulse Rate: 64 Blood Pressure: 122/85 Respiratory Rate: 16 Pulse Ox: 97 Oxygen Delivery Method: Room Air Assessment Airway patent: Yes Spontaneous unlabored respirations: Yes Mental status: Awake and Calm nausea: No Vomiting: No Anesthesia Complication: No Fluid Hydration Crystalloid volume administer (ml): 600 Total IV fluid infused: 600 Progress Note Anesthesia document: Postop Eval 1 completed: Yes
--- NOTE | 2024-01-12 10:20 | PCM.POSTANE2 ---
Anesthesia Postop Eval I Sum Postop Eval Completion status Anesthesia document: Postop Eval 1 completed: Yes Anesthesia Postop Eval I Summary Anesthesia Postop Eval I Summary: Anesthesia Postop Eval I: Assessment Summary Airway patent Yes 01/12/24 09:56 [email or web address] Spontaneous unlabored Yes 01/12/24 09:56 [email or web address] respirations Mental status Awake,Calm 01/12/24 09:56 [email or web address] nausea No 01/12/24 09:56 [email or web address] Vomiting No 01/12/24 09:56 [email or web address] Anesthesia Postop Eval I: Fluid Summary Crystalloid volume administer 600 01/12/24 09:56 [email or web address] (ml) Colloids volume administered ( ml) Blood Product volume administered (ml) Total IV fluid infused 600 01/12/24 09:56 [email or web address] Anesthesia Postop Eval I: Summary Notes Anesthesia Complication No 01/12/24 09:56 [email or web address] Anesthesia Complication Comment: Post-operative progress note Anesthesia: Postop Eval II Evaluation Mental status: Awake Pain Level: 0 nausea: No Vomiting: No
--- NOTE | 2024-01-12 10:37 | OP.COLON_ITS ---
Patient Name: Kari Mclean Procedure Date: 01/12/2024 9:21 AM Date of : 1965 Age: 58 Procedure: Colonoscopy Indications: Screening for colorectal malignant neoplasm Providers: David Liu DO Referring MD: Pawan Orlando Medicines: Monitored Anesthesia Care Patient Profile: This is a 58 year old female. Refer to note in patient chart for documentation of history and physical. Last Colonoscopy: 10 years ago. Complications: No immediate complications. Procedure: Pre-Anesthesia Assessment: - Prior to the procedure, a History and Physical was performed, and patient medications and allergies were reviewed. The patient is competent. The risks and benefits of the procedure and the sedation options and risks were discussed with the patient. All questions were answered and informed consent was obtained. Patient identification and proposed procedure were verified by the physician in the pre-procedure area. Mental Status Examination: alert and oriented. Airway Examination: normal oropharyngeal airway and neck mobility. Respiratory Examination: clear to auscultation. CV Examination: normal. Prophylactic Antibiotics: The patient does not require prophylactic antibiotics. Prior Anticoagulants: The patient has taken no anticoagulant or antiplatelet agents except for NSAID medication. ASA Grade Assessment: II - A patient with mild systemic disease. After reviewing the risks and benefits, the patient was deemed in satisfactory condition to undergo the procedure. The anesthesia plan was to use monitored anesthesia care (MAC). Immediately prior to administration of medications, the patient was re-assessed for adequacy to receive sedatives. The heart rate, respiratory rate, oxygen saturations, blood pressure, adequacy of pulmonary ventilation, and response to care were monitored throughout the procedure. The physical status of the patient was re-assessed after the procedure. After I obtained informed consent, the scope was passed under direct vision. Throughout the procedure, the patient's blood pressure, pulse, and oxygen saturations were monitored continuously. The Colonoscope was introduced through the anus and advanced to the cecum, identified by appendiceal orifice and ileocecal valve. The colonoscopy was performed without difficulty. The patient tolerated the procedure well. The quality of the bowel preparation was adequate. The ileocecal valve, appendiceal orifice, and rectum were photographed. Scope In: 9:36:11 AM Scope Withdrawal Time 0 hours 6 minutes 20 seconds Scope Out: 9:47:25 AM Total Procedure Duration Time 0 hours 11 minutes 14 seconds Findings: The perianal and digital rectal examinations were normal. A few small-mouthed diverticula were found in the sigmoid colon and transverse colon. The exam was otherwise without abnormality on direct and retroflexion views. Impression: - Diverticulosis in the sigmoid colon and in the transverse colon. - The examination was otherwise normal on direct and retroflexion views. - No specimens collected. Recommendation: - Discharge patient to home. - Resume previous diet. - Continue present medications. - Repeat colonoscopy in 10 years for screening purposes. Procedure Code(s): --- Professional --- G0121, Colorectal cancer screening; colonoscopy on individual not meeting criteria for high risk CPT copyright 2021 [employer]. All rights reserved. The codes documented in this report are preliminary and upon cafeteria associate review may be revised to meet current compliance requirements. David Liu DO 01/12/2024 10:36:41 AM This report has been signed electronically. Number of Addenda: 0 Note Initiated On: 01/12/2024 9:21 AM
--- NOTE | 2024-01-12 10:37 | OP.CCLET_ITS ---
01/12/2024 Pawan Orlando Re : Colonoscopy procedure for Kari Mclean Dear Dr. Orlando This procedure was performed on Friday, January 12, 2024. My impressions and recommendations are as follows: Impressions : - Diverticulosis in the sigmoid colon and in the transverse colon. - The examination was otherwise normal on direct and retroflexion views. - No specimens collected. Recommendations : - Discharge patient to home. - Resume previous diet. - Continue present medications. - Repeat colonoscopy in 10 years for screening purposes. My findings are described in the full procedure note, which is enclosed. If I can be of further assistance, please feel free to contact me at . Sincerely, David Liu, 01/12/2024 10:36:41 AM This report has been signed electronically.
== END 2024-01-12 10:32 | disposition home or self-care (01) ==
LOC: EN 07:56 → AC 07:58
PROVIDERS: PCP Family Medicine; Referring Provider Family Medicine; Visit Provider Internal Medicine Gastroenterology
PROC: 0DJD8ZZ Inspection of Lower Intestinal Tract, Via Natural or Artificial Opening Endoscopic (ICD-10-PCS; CPT 45378; principal; 2024-01-12 09:10)
DX: Z12.11 Encounter for screening for malignant neoplasm of colon (principal); K57.30 Diverticulosis of large intestine without perforation or abscess without bleeding; Z87.891 Personal history of nicotine dependence; F41.9 Anxiety disorder, unspecified; F32.A Depression, unspecified; Z98.51 Tubal ligation status
CPT/HCPCS: 45378; J7120; J2405

== ENCOUNTER → 2024-03-16 | Outpatient (CLI) | payer OTHER, SELFPAY ==
[2024-03-16 06:51] LABS: Absolute Lymphocyte Count 2.09 X10^3/uL (0.83-4.51); Absolute Neutrophil Count 2.8 X10^3/uL (2.0-7.7); Basophil# 0.08 X10^3/uL; Basophil% 1.4 % (0-1); Eosinophil# 0.32 X10^3/uL; Eosinophils% 5.5 % (0-5); Hematocrit 42.9 % (37-47); Hemoglobin 13.6 g/dL (12.0-15.0); Lymphocyte # 2.09 X10^3/ul (0.83-4.51); Mean Corp Hgb Conc 31.7 g/dL (32-36); Mean Corpuscular Volume 88.5 fL (81-99); Mean Platelet Vol. 9.9 fl (6.2-12.0); Monocyte# 0.54 X10^3/uL; Monocyte% 9.3 % (0-10); NRBC Flagged by Analyzer 0 % (0-5); Neutrophil # 2.76 X10^3/uL (2.7-7.7); Neutrophil % 47.6 % (47-70); Platelet Count 369 K/mm3 (150-450); RBC Distribution Width CV 14.6 % (11.6-14.6); RBC Distribution Width SD 46.7 fl (35.1-43.9); Red Blood Count 4.85 M/mm3 (4.2-5.4); White Blood Count 5.8 K/mm3 (4.4-11.0)
[2024-03-16 07:09] LABS: ALB/GLOB Ratio 1.1 RATIO (0.9-2.4); AST(SGOT) 22 U/L (15-37); Alanine Aminotransfer ALT/SGPT 24 U/L (13-56); Albumin, Serum 3.6 g/dL (3.2-5.0); Alkaline Phosphatase 116 U/L (45-117); Anion Gap 4 (5-15); BUN 17 mg/dL (7-18); BUN/Creat Ratio 19.9 RATIO (10-20); Calcium,Total 9.1 mg/dL (8.5-10.1); Chloride 108 mmol/L (98-107); Creatinine, Serum 0.85 mg/dL (0.55-1.02); EST Glomerular Filtration Rate 72 mL/min (>60); Est Glom Filt Rate - Afr Amer 87 mL/min (>60); Globulin 3.3 g/dL (2.2-4.2); Glucose 101 mg/dL (74-106); Potassium 4.3 mmol/L (3.5-5.1); Protein, Total 6.9 g/dL (6.4-8.2); Sodium Level 138 mmol/L (136-145)
== END | disposition home or self-care (01) ==
LOC: LAB 06:23
PROVIDERS: PCP Family Medicine; Referring Provider Family Medicine; Visit Provider Family Medicine
DX: Z00.00 Encounter for general adult medical examination without abnormal findings (principal)
CPT/HCPCS: 36415; 80053; 85025

== ENCOUNTER → 2025-01-08 | Outpatient (CLI) | payer OTHER, SELFPAY ==
--- NOTE | 2025-01-08 07:15 | BI_ITS ---
EXAM: SCRN MAMM (CAD)W/FADY BILAT DATE: 01/08/2025 CLINICAL HISTORY: F, Age 59 y/o , SCREEN FOR BREAST CANCER TECHNIQUE: Procedure Code: [id number] Modality: MG Procedure: SCRN MAMM (CAD)W/FADY BILAT COMPARISON: Prior exam(s) dated 01/06/2024, 01/04/2023 and 01/01/2022. FINDINGS: TISSUE DENSITY: The breasts are almost entirely fatty. Bilateral Breast Mammographic Findings: No significant masses, calcifications or other abnormalities are identified. Benign-appearing round microcalcifications are seen in both breasts. BI/SCRN MAMM (CAD)W/FADY BILAT IMPRESSION: Benign screening mammogram. OVERALL FINAL ASSESSMENT BI-RADS 2: BENIGN RECOMMENDATION: Routine annual follow-up in 1 Year Additional Recommendation none A letter with findings and recommendations will be mailed to the patient. Reading Location: [id number]
== END | disposition home or self-care (01) ==
PROVIDERS: PCP Family Medicine; Referring Provider Nurse Practitioner Women's Health; Visit Provider Nurse Practitioner Women's Health
DX: Z12.31 Encounter for screening mammogram for malignant neoplasm of breast (principal)
CPT/HCPCS: 77063; 77067

== ENCOUNTER → 2025-02-28 | Outpatient (CLI) | payer OTHER, SELFPAY ==
[2025-02-28 17:48] LABS: Hematocrit 41.1 % (37-47); Hemoglobin 13.4 g/dL (12.0-15.0); Immature Granulocytes Count 0.020 X10^3/uL (0.0-0.0); Mean Corp Hgb Conc 32.6 g/dL (32-36); Mean Corpuscular Volume 90.3 fL (81-99); Mean Platelet Vol. 9.6 fl (6.2-12.0); NRBC Flagged by Analyzer 0 % (0-5); Platelet Count 379 K/mm3 (150-450); RBC Distribution Width CV 13.3 % (11.6-14.6); RBC Distribution Width SD 43.9 fl (35.1-43.9); Red Blood Count 4.55 M/mm3 (4.2-5.4); White Blood Count 6.1 K/mm3 (4.4-11.0)
[2025-02-28 18:58] LABS: Albumin, Serum 4.3 g/dL (3.4-4.8); Chloride 105 mmol/L (98-108); Potassium 4.1 mmol/L (3.3-5.1)
[2025-02-28 19:16] LABS: AST(SGOT) 27 U/L (<=31); Alanine Aminotransfer ALT/SGPT 21 U/L (<=34); Alkaline Phosphatase 111 U/L (35-104); Anion Gap 12 (5-15); BUN 18 mg/dL (4-19); BUN/Creat Ratio 23.2 RATIO (10-20); Calcium,Total 9.8 mg/dL (7.6-11.0); Carbon Dioxide 22.8 mmol/L (21.0-32.0); Cholesterol 237 mg/dL (<=200); Globulin 2.7 g/dL (2.2-4.2); Glucose 91 mg/dL (70-99); Low Density Lipoprotein Calc. 136 mg/dL; Triglycerides 91 mg/dL; Very Low Density Lipoprotein 18 mg/dL (5-40); cholesterol:hdl ratio screen 2.78
== END | disposition home or self-care (01) ==
LOC: MTLAB 14:22
PROVIDERS: PCP Family Medicine; Referring Provider Family Medicine; Visit Provider Family Medicine
DX: K58.9 Irritable bowel syndrome, unspecified (principal); M19.90 Unspecified osteoarthritis, unspecified site; R73.9 Hyperglycemia, unspecified
CPT/HCPCS: 36415; 80053; 80061; 85025